=== PATIENT | male | born 1995 | race Caucasian/White ===

== ENCOUNTER 2016-10-05 13:24 | Emergency (ER) | payer OTHER ==
[2016-10-05 13:40] VITALS: BP 132/73
--- NOTE | 2016-10-05 14:08 | UC ---
Complaint Male HPI - HPI Summary HPI Summary: dysuria and fullness in abd of 1 month---feels like he is not completely emptying his bladder- - History of Current Complaint Chief Complaint: UCGU Stated Complaint: LOWER ABD PAIN NOT ABLE TO VOID Time Seen by Provider: 10/05/16 13:51 Hx Obtained From: Patient Onset/Duration: Gradual Onset, Lasting Weeks - 4, Still Present Timing: Intermittent - with urination Severity Initially: Mild Severity Currently: Mild Pain Intensity: 3 Pain Scale Used: 0-10 Numeric Location: Suprapubic Character: Constant Pressure - with urination Aggravating Factor(s): Voiding Alleviating Factor(s): Nothing Associated Signs And Symptoms: Positive: Negative Prior STD Hx: no - Allergies/Home Medications Allergies/Adverse Reactions: Allergies Allergy/AdvReac Type Severity Reaction Status Date / Time No Known Allergies Allergy Verified 03/26/16 15:38 Home Medications: Home Medications NK [No Home Medications Reported] 10/05/16 [History Confirmed 10/05/16] PMH/Surg Hx/FS Hx/Imm Hx Previously Healthy: Yes Endocrine History Of: Denies: Diabetes, Thyroid Disease Cardiovascular History Of: Denies: Cardiac Disorders, Hypertension Respiratory History Of: Denies: COPD, Asthma GI/ History Of: Denies: Ulcer Psychological History Of: Denies: Anxiety, Depression - Surgical History Surgical History: None - Family History Known Family History: Positive: None - Social History Occupation: Student Lives: With Family Alcohol Use: Weekly Substance Use Type: None Smoking Status (MU): Never Smoked Tobacco Review of Systems Constitutional: Negative Skin: Negative Eyes: Negative ENT: Negative Respiratory: Negative Cardiovascular: Negative Gastrointestinal: Abdominal Pain - supra pubic Genitourinary: Dysuria Motor: Negative Neurovascular: Negative Musculoskeletal: Negative Neurological: Negative Psychological: Negative All Other Systems Reviewed And Are Negative: Yes Physical Exam Triage Information Reviewed: Yes Appearance: Well-Appearing, No Pain Distress, Well-Nourished Vital Signs: Initial Vital Signs Temp 98.4 F 10/05/16 13:34 Pulse 90 10/05/16 13:34 Resp 18 10/05/16 13:34 BP 132/73 10/05/16 13:34 Pulse Ox 100 10/05/16 13:34 Vital Signs Reviewed: Yes Eye Exam: Normal Eyes: Positive: Conjunctiva Clear ENT Exam: Normal ENT: Positive: Normal ENT inspection, Hearing grossly normal. Negative: Nasal congestion, Nasal drainage, Tonsillar swelling, Tonsillar exudate, Trismus, Muffled/hoarse voice Neck exam: Normal Neck: Positive: Supple, Nontender Respiratory Exam: Normal Respiratory: Positive: Chest non-tender, Lungs clear, Normal breath sounds, No respiratory distress, No accessory muscle use Cardiovascular Exam: Normal Cardiovascular: Positive: RRR, No Murmur, Pulses Normal, Brisk Capillary Refill Abdominal Exam: Normal Abdomen Description: Positive: No Organomegaly, Soft. Negative: Nontender, CVA Tenderness (R), CVA Tenderness (L), Distended, Guarding, McBurney's Point Tenderness, Peritoneal Signs Bowel Sounds: Positive: Present Musculoskeletal Exam: Normal Musculoskeletal: Positive: Strength Intact, ROM Intact, No Edema Neurological Exam: Normal Neurological: Positive: Alert, Muscle Tone Normal Psychological Exam: Normal Psychological: Positive: Normal Response To Family Skin Exam: Normal Complaint Male Course/Dx - Course Course Of Treatment: send urine for culture, rna for alexey/chly. follow with pcp and or [facility] - Differential Dx/Diagnosis Differential Diagnosis/HQI/PQRI: Epididymitis, Prostatitis, Urinary Tract Infection, Other - std Provider Diagnoses: Dysuria Discharge - Discharge Plan Condition: Stable Disposition: HOME Patient Education Materials: Dysuria (ED) Referrals: [facility] [place] [facility] [place]] - 1 Week [facility] [Outside] - 4 Days Non Staff,Doctor [Medical Doctor] -
== END 2016-10-05 14:45 | disposition home or self-care (01) ==
LOC: UCEAST 13:24
DX: R30.0 Dysuria (principal); R10.30 Lower abdominal pain, unspecified
CPT/HCPCS: 81002; 87086; 87491; 87591; 99211; G0463

== ENCOUNTER 2018-05-22 23:45 | Emergency (ER) | payer OTHER ==
[2018-05-23] MEDS ORDERED: predniSONE TAB* 20 MG PO ONE (02:05)
[2018-05-23] MEDS ORDERED: Lidocaine 2% VISCOUS* 15 ML UDC PO ONE (02:05)
[2018-05-23 02:24] VITALS: BP 0/0
--- NOTE | 2018-05-23 05:01 | ED ---
Complex/Multi-Sys Presentation - HPI Summary HPI Summary: The pt is a 22 y/o male presenting to the [facility] with a chief complaint of oral pain. The pain is described to be a burning sensation in the mouth. The pain is reportedly been getting worse since onset (3 hours prior to [facility] arrival). The symptoms are alleviated by nothing. The symptoms are aggravated by nothing. The pt states he has had "cold-like" symptoms in the triage assessment. The pain is rated to be a 6/10 in severity. - History Of Current Complaint Chief Complaint: EDGeneral Time Seen by Provider: 05/23/18 01:57 Hx Obtained From: Patient Onset/Duration: Lasting Hours - 3 hours prior to [facility] arrival Aggravating Factor(s): Nothing Alleviating Factor(s): Nothing Associated Signs And Symptoms: Positive: Other - Burning sensation in mouth - Allergies/Home Medications Allergies/Adverse Reactions: Allergies Allergy/AdvReac Type Severity Reaction Status Date / Time No Known Allergies Allergy Verified 05/22/18 23:49 PMH/Surg Hx/FS Hx/Imm Hx Endocrine/Hematology History: Denies: Hx Diabetes, Hx Thyroid Disease Cardiovascular History: Denies: Hx Congenital Heart Disease, Hx Hypertension Respiratory History: Denies: Hx Asthma, Hx Chronic Obstructive Pulmonary Disease (COPD) GI History: Denies: Hx Ulcer Neurological History: Denies: Hx Headaches Psychiatric History: Denies: Hx Anxiety, Hx Depression Infectious Disease History: No Infectious Disease History: Denies: Hx Hepatitis, Hx Human Immunodeficiency Virus (HIV), History Other Infectious Disease, Traveled Outside the [place] in Last 30 Days - Family History Family History: Reviewed and Noncontributory - Social History Alcohol Use: Weekly Substance Use Type: Reports: None Smoking Status (MU): Never Smoked Tobacco Review of Systems Positive: Other - "Cold-like symptoms" - as per triage report Eyes: Negative ENT: Other - Oral pain; Burning sensation in Mouth Cardiovascular: Negative Respiratory: Negative Gastrointestinal: Negative Genitourinary: Negative Musculoskeletal: Negative Skin: Negative Neurological: Negative Psychological: Normal All Other Systems Reviewed And Are Negative: Yes Physical Exam - Summary Physical Exam Summary: VITAL SIGNS: Reviewed. GENERAL: Patient is a well-developed and nourished (MALE) who is lying comfortable in the stretcher. Patient is not in any acute respiratory distress. HEAD AND FACE: No signs of trauma. No ecchymosis, hematomas or skull depressions. No sinus tenderness. EYES: PERRLA, EOMI x 2, No injected conjunctiva, no nystagmus. EARS: Hearing grossly intact. Ear canals and tympanic membranes are within normal limits. MOUTH: Diffuse Redness of the oral cavity no blisters or sores NECK: Supple, trachea is midline, no adenopathy, no JVD, no carotid bruit, no c- spine tenderness, neck with full ROM. CHEST: Symmetric, no tenderness at palpation LUNGS: Clear to auscultation bilaterally. No wheezing or crackles. CVS: Regular rate and rhythm, S1 and S2 present, no murmurs or gallops appreciated. ABDOMEN: Soft, non-tender. No signs of distention. No rebound no guarding, and no masses palpated. Bowel sounds are normal. EXTREMITIES: FROM in all major joints, no edema, no cyanosis or clubbing. NEURO: Alert and oriented x 3. No acute neurological deficits. Speech is normal and follows commands. SKIN: Dry and warm Triage Information Reviewed: Yes Vital Signs On Initial Exam: Initial Vitals Temp Pulse Resp BP Pulse Ox 99.5 F 98 16 156/96 99 05/22/18 23:46 05/22/18 23:46 05/22/18 23:46 05/22/18 23:46 05/22/18 23:46 Vital Signs Reviewed: Yes Diagnostics - Vital Signs Vital Signs Temp Pulse Resp BP Pulse Ox 05/23/18 02:23 0 F 0 0 0/0 0 05/23/18 01:49 98.4 F 69 16 151/82 05/22/18 23:46 99.5 F 98 16 156/96 99 - Laboratory Lab Statement: Any lab studies that have been ordered have been reviewed, and results considered in the medical decision making process. Complex Multi-Symp Course/Dx Course Of Treatment: The pt is a 22 y.o male with a chief complaint of oral pain. A burning sensation is also reported as well as "Cold-like" symptoms. We discussed a dishcharge plan with the pt and recommend he take steroids to numb to mouth. The dx will be Stomatitis upon review of physical examination and the pt will be discharged home. - Diagnoses Provider Diagnoses: Stomatitis Discharge - Sign-Out/Discharge Documenting (check all that apply): Patient Departure - Discharge Home - Discharge Plan Condition: Stable Disposition: HOME Prescriptions: Lidocaine 2% VISCOUS* 5 ml PO QID PRN #1 btl PRN Reason: Pain predniSONE TAB* [Deltasone TAB*] 50 mg PO DAILY #3 tab Patient Education Materials: Gingivostomatitis (ED) Referrals: Ryan Carlos MD [Primary Care Provider] - Additional Instructions: RETURN TO THE EMERGENCY DEPARTMENT FOR CHANGING OR WORSENING SYMPTOMS. FOLLOW UP WITH PCP IN 1-2 DAYS. - Attestation Statements Document Initiated by Scribe: Yes Documenting Scribe: Modesto Kessler Provider For Whom Scribe is Documenting (Include Credential): Dr. Nahomy Salians Scribe Attestation: [place] Daily, scribed for Dr. Nahomy Salinas on 05/23/18 at 0510.
== END 2018-05-23 02:23 | disposition home or self-care (01) ==
LOC: ED 23:45
DX: K12.1 Other forms of stomatitis (principal)
CPT/HCPCS: 99282; J7512